=== PATIENT | female | born 1965 | race Caucasian/White ===

== ENCOUNTER 2019-02-04 17:18 | Inpatient (IN) | payer BC ==
--- NOTE | 2019-02-04 18:23 | ED ---
Psychiatric Complaint - HPI Summary HPI Summary: Patient is a 53 y/o F presenting to ED for SI. is present in the room. PMHx of major depressive disorder, PTSD, anxiety. Patient reports that she had been experiencing SI for the past six months. She went on a retreat two weeks ago and states that this exacerbated her Sx. notes that she had to go flower picker the patient "in the middle of the night". Patient states that there was a "horrible, nasty" clinician at the retreat. She claims that the clinician had attempted to prescribe her latuda, to which she notes she has a significant allergy. She states that she had experienced dress syndrome previously when she had taken latuda. She additionally states that this clinician had discontinued her diltiazem using her operations tech's name. Patient's operations tech is Dr. Berger at [place]. Patient states that she has a plan to by overdosing on her medications. She notes that she has not taken any medications today. Patient is on viibryd 40 mg, bupropion 75 mg, diltiazem 240 mg. She notes that she has two previous suicide attempts. She states that she has been hospitalized for psychiatric reasons five times, with the most recent being two years ago, in February 2017. Patient is followed by Nini Cruz, psychiatrist, in [place]. Patient additionally states that she has been experiencing left ear ache and notes that her "eye are burning". Patient took extra strength Tylenol 3.5 hours prior to arrival. - History Of Current Complaint Chief Complaint: EDSuicidal Time Seen by Provider: 02/04/19 18:05 Hx Obtained From: Patient, Family/Market Risk Specialist - Onset/Duration: Lasting Weeks - past six months, Still Present, Worse Since - going on retreat Timing: Weeks - past six months Character: Depressed Aggravating Factor(s): Recent Stress Has Suicidal: Reports: Thoughts, With A Plan, Has Prior Attempt(s) - Allergies/Home Medications Allergies/Adverse Reactions: Allergies Allergy/AdvReac Type Severity Reaction Status Date / Time lurasidone [From Latuda] Allergy See Comment Verified 02/04/19 17:34 Sulfa (Sulfonamide Allergy Hives Verified 02/04/19 17:34 Antibiotics) Home Medications: Home Medications Ascorbic Acid [Vitamin C] 1,000 mg PO DAILY 02/04/19 [History Confirmed 02/04/19 ] Cholecalciferol (Vitamin D3) [Vitamin D3] 2,000 unit PO DAILY 02/04/19 [History Confirmed 02/04/19] Docusate Sodium [Colace] 100 mg PO DAILY 02/04/19 [History Confirmed 02/04/19] Fluticasone NASAL SPRAY 50MCG* [Flonase NASAL SPRAY 50MCG*] 2 spray BOTH NARES DAILY 02/04/19 [History Confirmed 02/04/19] Lactobac 41/B.bifid,Lactis/Fos [Probiotic-10 Ultimate] 1 cap PO DAILY 02/04/19 [ History Confirmed 02/04/19] Levothyroxine Sodium [Synthroid] 50 mcg PO DAILY 02/04/19 [History Confirmed 03/18] Loratadine 10 mg PO DAILY 02/04/19 [History Confirmed 02/04/19] Multivitamin Women 50 Plus Tab 1 tab PO DAILY 02/04/19 [History Confirmed ] Vilazodone HCl [Viibryd] 1 each PO DAILY 02/04/19 [History Confirmed 02/04/19] Vit C/E/Zn/Coppr/Lutein/Zeaxan [Preservision Areds 2 Softgel] 1 each PO DAILY [History Confirmed 02/04/19] Ziprasidone HCl [Geodon] 40 mg PO DAILY 02/04/19 [History Confirmed 02/04/19] Zolpidem Tartrate [Ambien] 10 mg PO DAILY 02/04/19 [History Confirmed 02/04/19] buPROPion HCl [Zyban] 75 mg PO DAILY 02/04/19 [History Confirmed 02/04/19] clonazePAM [Clonazepam] 1 mg PO BID 02/04/19 [History Confirmed 02/04/19] dilTIAZem HCl [Diltiazem HCl ER] 240 mg PO DAILY 02/04/19 [History Confirmed 03/18] proPANTHeline TAB* [Probanthine TAB*] 15 mg PO QID 02/04/19 [History Confirmed 02/04/19] PMH/Surg Hx/FS Hx/Imm Hx Endocrine/Hematology History: Reports: Hx Thyroid Disease - hypothyroidism Psychiatric History: Reports: Hx Anxiety, Hx Depression, Hx Suicide Attempt Denies: Hx Eating Disorder Infectious Disease History: No Infectious Disease History: Denies: Traveled Outside the [place] in Last 30 Days - Family History Known Family History: Positive: Other - FMHx of suicide - Social History Alcohol Use: None Substance Use Type: Reports: None Smoking Status (MU): Never Smoked Tobacco Review of Systems ENT: Other - positive - "eyes are burning" Positive: Ear Ache - left ear Psychological: Other - positive - SI with plan All Other Systems Reviewed And Are Negative: Yes Physical Exam Triage Information Reviewed: Yes Vital Signs On Initial Exam: Initial Vitals Temp Pulse Resp BP Pulse Ox 99.3 F 111 17 131/103 95 02/04/19 17:29 02/04/19 17:29 02/04/19 17:29 02/04/19 17:29 02/04/19 17:29 Vital Signs Reviewed: Yes Appearance: Positive: Well-Appearing - but withdrawn Skin: Positive: Warm, Dry Eyes: Positive: Normal, EOMI, JARAD ENT: Positive: Normal ENT inspection, TMs normal Respiratory/Lung Sounds: Positive: Clear to Auscultation, Breath Sounds Present Cardiovascular: Positive: Normal, Pulses are Symmetrical in both Upper and Lower Extremities, Tachycardia Abdomen Description: Positive: Nontender Bowel Sounds: Positive: Present Musculoskeletal: Positive: Normal Neurological: Positive: Normal, Alert, Oriented to Person Place, Time Psychiatric: Positive: Other - Patient is withdrawn, tearful. SI w/ plan to overdose and poor judgment noted. Diagnostics - Vital Signs Vital Signs Temp Pulse Resp BP Pulse Ox 02/04/19 17:29 99.3 F 111 17 131/103 95 - Laboratory Result Diagrams: 02/04/19 18:17 02/04/19 18:17 Lab Statement: Any lab studies that have been ordered have been reviewed, and results considered in the medical decision making process. - EKG 1912 Cardiac Rate: NL - rate of 93 BPM EKG Rhythm: Sinus Rhythm Summary of EKG Findings: EKG showed NSR with rate of 93 BPM, normal axis, normal TN/QTc, no ishcemic changes. Re-Evaluation - Re-Evaluation First Eval Re-Evaluation Time: 19:00 Comment: Patient is medically cleared for MHE. Course/Dx - Course Course Of Treatment: Patient is a 53 y/o F presenting to ED with SI and plan to overdose on medications. Given her cardiac history (patient is on Ditalizem), expect tachycardia secondary to anxiety. Bloodwork and UA obtained. EKG done. EKG showed NSR with rate of 93 BPM, normal axis, normal TN/QTc, no ishcemic changes. Patient is medically cleared. She is signed out to Dr. Taylor at 1900 pending MHE. - Differential Dx/Clinical Impression Differential Diagnosis/HQI/PQRI: Positive: Anxiety, Depression Provider Diagnosis: Suicidal ideation Discharge - Sign-Out/Discharge Documenting (check all that apply): Sign-Out Patient Signing out patient TO: Henry Taylor - Discharge Plan Condition: Good Disposition: PSYCHIATRIC FACILITY[place] [place] - Billing Disposition and Condition Condition: GOOD Disposition: Psychiatric Facility [facility] [place] - Attestation Statements Document Initiated by Seanibe: Yes Documenting Scribe: TONG LEGGETT Provider For Whom Devorah is Documenting (Include Credential): ROBERT FIELD MD Scribe Attestation: TONG Loving, scribed for ROBERT FIELD MD on 02/05/19 at 1047. Scribe Documentation Reviewed: Yes Provider Attestation: The documentation as recorded by the scribeTONG accurately reflects the service I personally performed and the decisions made by me, ROBERT FIELD MD Status of Scribe Document: Viewed
[2019-02-04 18:24] LABS: ABS Basophils 0.1 10^3/ul (0-0.2); ABS Eosinophils 0.1 10^3/ul (0-0.6); ABS Monocytes 0.8 10^3/ul (0-0.8); ABS Neutrophils 6.3 10^3/ul (1.5-7.7); Eosinophil % 1.1 %; Hematocrit 40 % (35-47); Hemoglobin 13.8 g/dL (12.0-16.0); Lymphocyte % 21.9 %; Mean Corpuscular HGB Conc 35 g/dL (31-36); Mean Corpuscular Hemoglobin 30 pg (27-31); Mean Corpuscular Volume 86 fL (80-97); Mean Platelet Volume 7.2 fL (7.4-10.4); Platelet Count 310 10^3/uL (150-450); Red Blood Count 4.65 10^6 /uL (3.70-4.87); Red Cell Distribution Width 13 % (10-15); White Blood Count 9.3 10^3/uL (3.5-10.8)
[2019-02-04 18:31] LABS: Urine Appearance Cloudy; Urine Bacteria 1+ (Absent); Urine Bilirubin Negative (Negative); Urine Blood Negative (Negative); Urine Color Yellow; Urine Glucose Negative (Negative); Urine Ketones Negative (Negative); Urine Nitrite Negative (Negative); Urine Protein Negative (Negative); Urine Red Blood Cell 1+(3-5/hpf) (Absent); Urine Specific Gravity 1.011 (1.010-1.030); Urine Urobilinogen Negative (Negative); Urine White Blood Cell 2+(11-20/hpf) (Absent)
[2019-02-04 18:40] LABS: ALT 40 U/L (7-52); AST 24 U/L (13-39); Albumin 4.5 g/dL (3.2-5.2); Albumin/Globulin Ratio 1.7 (1-3); Alkaline Phosphatase 115 U/L (34-104); Anion Gap 8 mmol/L (2-11); BUN/Creatinine Ratio 15.7 (8-20); Blood Urea Nitrogen 14 mg/dL (6-24); CO2 Carbon Dioxide 26 mmol/L (22-32); Calcium 10.1 mg/dL (8.6-10.3); Chloride 104 mmol/L (101-111); EGFR African American 80.6 (>60); EGFR Non-African American 66.6 (>60); Globulin 2.7 g/dL (2-4); Glucose 100 mg/dL (70-100); Potassium 4.1 mmol/L (3.5-5.0); Sodium 138 mmol/L (135-145); Total Protein 7.2 g/dL (6.4-8.9)
[2019-02-04 18:45] LABS: Urine Benzodiazepine Screen None Detected (None Detect); Urine Opiates Screen None Detected (None Detect)
[2019-02-04 18:46] LABS: HCG Pregnancy 3.27 mIU/mL
[2019-02-04 19:02] LABS: Acetaminophen < 15 mcg/mL; Alcohol < 10 mg/dL (<10); Salicylate < 2.50 mg/dL (<30)
[2019-02-04 19:16] LABS: TSH (Thyroid Stimulating Horm) 4.28 mcIU/mL (0.34-5.60)
--- NOTE | 2019-02-04 20:06 | ED ---
Progress - Progress Note Progress Note: Pt is a sign out from Dr. Lee to Dr. Taylor at shift change 1900 02/04/19 pending a MHU Eval for the pt. Re-Evaluation - Re-Evaluation First Eval Re-Evaluation Time: 19:00 Comment: Patient is medically cleared for MHE. Course/Dx - Course Course Of Treatment: The pt is a sing out from dr. Lee to Dr. Taylor at 1900 02/04/19 pending MHE. Discharge - Sign-Out/Discharge Documenting (check all that apply): Receiving Sign-Out Receiving patient FROM: Anette Lee Patient Received Moderate/Deep Sedation with Procedure: No - Discharge Plan Referrals: Kane WOLFE,Cassia Stiles [Medical Doctor] - - Attestation Statements Document Initiated by Scribe: Yes Documenting Scribe: Scott Colunga Provider For Whom Scribe is Documenting (Include Credential): Henry Taylor MD Scribe Attestation: IScott, scribed for Henry Taylor MD on 02/04/19 at 2006.
[2019-02-05] MEDS ORDERED: Acetaminophen TAB* 325 MG PO PRN (00:16)
[2019-02-05] MEDS ORDERED: Al Hydrox/Mg Hydrox/Simet LIQ* 30 ML UDC PO PRN (00:16)
[2019-02-05] MEDS: Diltiazem CD CAP* 240 MG PO SCH ×2 (01:43→23:11)
[2019-02-05] MEDS: [UNRECOGNIZED DRUG - OTHER] PO SCH ×5 (01:43→23:13)
[2019-02-05] MEDS: Zolpidem TAB* 10 MG PO SCH ×2 (01:44→23:11)
[2019-02-05] MEDS: clonazePAM TAB(*) 1 MG PO SCH ×3 (01:44→23:11)
[2019-02-05] MEDS: Levothyroxine TAB* 50 MCG TAB PO SCH (06:08)
[2019-02-05] MEDS: Vitamin THERAPEUTIC TAB PO SCH (08:44)
[2019-02-05] MEDS: Ascorbic Acid TAB* 500 MG PO SCH (08:46)
[2019-02-05] MEDS: Ziprasidone * 20 MG CAP (generic Geodon) PO SCH (08:47)
[2019-02-05] MEDS: Cholecalciferol TAB* 1000 UNITS PO SCH (08:48)
[2019-02-05] MEDS: buPROPion TAB* 75 MG PO SCH (08:48)
[2019-02-05] MEDS: AREDS2 PO SCH (08:50)
[2019-02-05] MEDS: VILAZODONE 40 MG PO SCH (08:50)
[2019-02-05] MEDS: Fluticasone NASAL SPRAY 50MCG* 16 gm SPRAY BTL BOTH NARES SCH (08:52)
[2019-02-05] MEDS ORDERED: Docusate CAP* 100 MG PO SCH (09:00)
[2019-02-05] MEDS ORDERED: Cetirizine* 10 MG TAB PO SCH (09:00)
[2019-02-05] MEDS ORDERED: [UNRECOGNIZED DRUG - OTHER] PO SCH (09:00)
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
[2019-02-05] MEDS: Docusate CAP* 100 MG PO SCH (23:11)
[2019-02-05] MEDS: LORATADINE 10 MG PO SCH (23:12)
[2019-02-05] MEDS: [UNRECOGNIZED DRUG - OTHER] PO SCH (23:13)
[2019-02-06] MEDS: Levothyroxine TAB* 50 MCG TAB PO SCH (04:57)
[2019-02-06] MEDS: Fluticasone NASAL SPRAY 50MCG* 16 gm SPRAY BTL BOTH NARES SCH (09:10)
[2019-02-06] MEDS: [UNRECOGNIZED DRUG - OTHER] PO SCH ×4 (09:10→21:50)
[2019-02-06] MEDS: VILAZODONE 40 MG PO SCH (09:12)
[2019-02-06] MEDS: AREDS2 PO SCH (09:13)
[2019-02-06] MEDS: Ascorbic Acid TAB* 500 MG PO SCH (09:15)
[2019-02-06] MEDS: Ziprasidone * 20 MG CAP (generic Geodon) PO SCH (09:16)
[2019-02-06] MEDS: Vitamin THERAPEUTIC TAB PO SCH (09:16)
[2019-02-06] MEDS: buPROPion TAB* 75 MG PO SCH (09:19)
[2019-02-06] MEDS: clonazePAM TAB(*) 1 MG PO SCH ×2 (09:19→21:45)
[2019-02-06] MEDS: Docusate CAP* 100 MG PO SCH ×2 (09:20→21:46)
[2019-02-06] MEDS: Cholecalciferol TAB* 1000 UNITS PO SCH (09:20)
--- NOTE | 2019-02-06 16:14 | PN ---
Subjective - Subjective Date of Service: 02/06/19 Service Type: 72413 Hosp care 25 min moderate complexity Subjective: Patient reports poor sleep and is eager to return home either tomorrow or Monday. She states she is "not suicidal" and has a "game plan" for returning home. Patient endorses mild improvement in appetite. From there, conversation centered around conflict with her step-daughter. Patient encouraged to focus on her own thoughts/feelings/behaviors and relinquish expectations for child's behaviors. Patient receptive to therapeutic suggestions, including DBT options with outpatient providers. Objective - General Observations Appearance: Neat Stature: Overweight Posture: WNL Eye Contact: Average Behavior/Activity: WNL - Interaction Observations Attitude Towards Examiner: Cooperative, Anxious Stated Mood: Euthymic Affect: Full Speech Pattern/Tone: Clear, Appropriate, Normal Volume Thought Process: Coherent, Goal Directed Perception: WNL Thought Content: Preoccupation/Ruminations Hallucination Type: Denies Delusion Type: Denies - Cognitive Function Orientation: A&O x 4 Level of Consciousness: Alert Cognition: WNL Estimated Intelligence: Normal Insight: Mostly Blames Others for Problems Judgment Within Normal Limits: Yes - Medication Compliance Cooperative with Inpatient Medication Regimen: Yes - Group Participation Participates in Group Activities: Yes Assessment - Assessment Merits Inpatient Hospitalization: For Immediate Safety, For Stabilization Inpatient DSM-V Dx: F43.12 Clinical Impression: Patient is a 53-year-old white female, domiciled, , disabled, who has been hospitalized 4 times in the past since 2011. She reports attending a treatment facility last month in the hopes of treating posttraumatic stress disorder and depression. While there, she identified that it was primarily a substance use treatment facility and did not feel well cared for. She reports worsening depressed mood and suicidal ideation upon arrival. The patient has been on multiple medication trials with either untoward effects, drug rash with eosinophilia and systemic symptoms syndrome, or ineffectiveness. Patient merits hospitalization for immediate safety and stabilization. Plan - Plan Treatment Plan: Name: CINTHIA CHAVEZ Birthdate: 1965 [id number] continue acute intensive psychiatric treatment. may decrease to q30min and allow staff pass. change ziprasidone to bedtime dosing, add ibuprofen prn pain. tentative discharge 02/07/19. Continued Medication Management: Continue Outpt Medication Medications: Current Medications Acetaminophen (Tylenol Tab*) 650 mg PO Q4H PRN PRN Reason: PAIN or TEMP > 101 F Last Admin: 02/06/19 04:55 Dose: 650 mg Al Hydrox/Mg Hydrox/Simethicone (Maalox Plus*) 30 ml PO Q4H PRN PRN Reason: INDIGESTION Last Admin: 02/05/19 18:05 Dose: 30 ml Ascorbic Acid (Vitamin C Tab*) 1,000 mg PO DAILY [facility] Last Admin: 02/06/19 09:15 Dose: Not Given Bupropion HCl (Wellbutrin Tab*) 75 mg PO DAILY [facility] Last Admin: 02/06/19 09:19 Dose: 75 mg Cholecalciferol (Vitamin D Tab*) 2,000 units PO DAILY [facility] Last Admin: 02/06/19 09:20 Dose: 2,000 units Clonazepam (Klonopin Tab(*)) 1 mg PO BID [facility] Last Admin: 02/06/19 09:19 Dose: 1 mg Diltiazem HCl (Cardizem Cd Cap*) 240 mg PO 2100 [facility] Last Admin: 02/05/19 23:11 Dose: 240 mg Docusate Sodium (Colace Cap*) 200 mg PO BID [facility] Last Admin: 02/06/19 09:20 Dose: 200 mg Fluticasone Propionate (Flonase Nasal [place] 50mcg*) 2 spray BOTH NARES DAILY [facility] Last Admin: 02/06/19 09:10 Dose: 2 spray Ibuprofen (Motrin Tab*) 600 mg PO Q6H PRN PRN Reason: PAIN Levothyroxine Sodium (Synthroid Tab*) 50 mcg PO 0600 [facility] Last Admin: 02/06/19 04:57 Dose: 50 mcg Loratadine (Claritin Tab(Nf)) 10 mg PO BEDTIME [facility] Last Admin: 02/05/19 23:12 Dose: 10 mg Multivitamins (Theragran Tab*) 1 tab PO DAILY [facility] Last Admin: 02/06/19 09:16 Dose: Not Given Multivitamins/Minerals (Preservision Areds 2) 1 cap PO DAILY [facility] Last Admin: 02/06/19 09:13 Dose: 1 cap Pto: Vilazodone 40 (Mg Tablets) 1 dose PO 0800 [facility] Last Admin: 02/06/19 09:12 Dose: 1 dose Pto: Ultimate Dahlia (Probiotic Supplement) 1 dose PO BEDTIME [facility] Last Admin: 02/05/19 23:13 Dose: 1 dose Propantheline [place] (Probanthine Tab*) 15 mg PO QID [facility] Last Admin: 02/06/19 12:37 Dose: Not Given Ziprasidone (Geodon (Generic) *) 40 mg PO BEDTIME [facility] Zolpidem Tartrate (Ambien Tab*) 10 mg PO BEDTIME [facility] Last Admin: 02/05/19 23:11 Dose: 10 mg - Discharge Plan Discharge Plan: Inpatient Hospitalization
[2019-02-06] MEDS: Ibuprofen TAB* 600 MG PO PRN (16:51)
[2019-02-06] MEDS ORDERED: Ziprasidone * 20 MG CAP (generic Geodon) PO SCH (21:00)
[2019-02-06] MEDS: Diltiazem CD CAP* 240 MG PO SCH (21:46)
[2019-02-06] MEDS: Zolpidem TAB* 10 MG PO SCH (21:47)
[2019-02-06] MEDS: LORATADINE 10 MG PO SCH (21:48)
[2019-02-06] MEDS: [UNRECOGNIZED DRUG - OTHER] PO SCH (21:50)
[2019-02-07] MEDS: Ibuprofen TAB* 600 MG PO PRN ×2 (03:36→16:36)
[2019-02-07] MEDS: Levothyroxine TAB* 50 MCG TAB PO SCH (06:34)
[2019-02-07] MEDS: [UNRECOGNIZED DRUG - OTHER] PO SCH ×3 (07:53→16:36)
[2019-02-07 08:28] VITALS: BP 115/73
[2019-02-07 08:45] LABS: HDL Cholesterol 57.3 mg/dL
[2019-02-07] MEDS: Docusate CAP* 100 MG PO SCH (08:57)
[2019-02-07] MEDS: Ascorbic Acid TAB* 500 MG PO SCH (08:57)
[2019-02-07] MEDS: buPROPion TAB* 75 MG PO SCH (08:57)
[2019-02-07] MEDS: Vitamin THERAPEUTIC TAB PO SCH (08:58)
[2019-02-07] MEDS: VILAZODONE 40 MG PO SCH (08:59)
[2019-02-07] MEDS: Cholecalciferol TAB* 1000 UNITS PO SCH (09:00)
[2019-02-07] MEDS: AREDS2 PO SCH (09:04)
[2019-02-07] MEDS: Fluticasone NASAL SPRAY 50MCG* 16 gm SPRAY BTL BOTH NARES SCH (09:04)
--- NOTE | 2019-02-07 11:54 | DCNOTE ---
Subjective - Subjective Service Types: 17180 [facility] [place] [facility] simple under 30 min Discharge Date: 02/07/19 Subjective: Patient reports she slept "great" and feels rested for the first time in over a month. She reports she has discussed counseling with her and he agrees to engage, specifically to target improved parenting of their teenage daughter. She reports "seeing light" in regards to hopefulness and that this is a new experience for her. She expresses appreciation for services received and motivation to continue recovery efforts in outpatient setting. Objective - General Observations Appearance: Neat Stature: WNL, Overweight Posture: WNL Eye Contact: Average Behavior/Activity: WNL - Interaction Observations Attitude Towards Examiner: Cooperative Stated Mood: Euthymic Affect: Bright Speech Pattern/Tone: Clear, Appropriate, Normal Volume Thought Process: Coherent, Goal Directed Perception: WNL Thought Content: WNL Hallucination Type: None Delusion Type: None - Cognitive Function Orientation: A&O x 4 Level of Consciousness: Alert Cognition: WNL Estimated Intelligence: Normal Insight: WNL Judgment Within Normal Limits: Yes - Medication Compliance Cooperative with Inpatient Medication Regimen: Yes - Group Participation Participates in Group Activities: Yes DC Assessment - Assessment Clinical Impression: Patient is a 53-year-old white female, domiciled, , disabled, who has been hospitalized 4 times in the past since 2011. She reports attending a treatment facility last month in the hopes of treating posttraumatic stress disorder and depression. While there, she identified that it was primarily a substance use treatment facility and did not feel well cared for. She reports worsening depressed mood and suicidal ideation upon arrival. The patient has been on multiple medication trials with either untoward effects, drug rash with eosinophilia and systemic symptoms syndrome, or ineffectiveness. She reports much improvement in mood and sleep since admission. She denies SI or passive wish and is eager to be discharged to return home to her family. Merits Inpatient Hospitalization: No Clear for Discharge: Adequate Clinical Respons, Acceptable Safety Profile Inpatient DSM-V Dx: F43.12 Discharge Planning - Discharge Planning Discharge Plan: Outpatient Follow Up Outpatient Program: [facility] Recommendations for Continuing Care: Medication Management, Psychotherapy, Routine Metabolic Monitoring, Primary Care Followup Medications: Current Medications Acetaminophen (Tylenol Tab*) 650 mg PO Q4H PRN PRN Reason: PAIN or TEMP > 101 F Last Admin: 02/06/19 04:55 Dose: 650 mg Al Hydrox/Mg Hydrox/Simethicone (Maalox Plus*) 30 ml PO Q4H PRN PRN Reason: INDIGESTION Last Admin: 02/05/19 18:05 Dose: 30 ml Ascorbic Acid (Vitamin C Tab*) 1,000 mg PO DAILY [facility] Last Admin: 02/07/19 08:57 Dose: 1,000 mg Bupropion HCl (Wellbutrin Tab*) 75 mg PO DAILY [facility] Last Admin: 02/07/19 08:57 Dose: 75 mg Cholecalciferol (Vitamin D Tab*) 2,000 units PO DAILY [facility] Last Admin: 02/07/19 09:00 Dose: 2,000 units Clonazepam (Klonopin Tab(*)) 1 mg PO BID [facility] Last Admin: 02/06/19 21:45 Dose: 1 mg Diltiazem HCl (Cardizem Cd Cap*) 240 mg PO 2100 [facility] Last Admin: 02/06/19 21:46 Dose: 240 mg Docusate Sodium (Colace Cap*) 200 mg PO BID [facility] Last Admin: 02/07/19 08:57 Dose: 200 mg Fluticasone Propionate (Flonase Nasal [place] 50mcg*) 2 spray BOTH NARES DAILY [facility] Last Admin: 02/07/19 09:04 Dose: 2 spray Ibuprofen (Motrin Tab*) 600 mg PO Q6H PRN PRN Reason: PAIN Last Admin: 02/07/19 03:36 Dose: 600 mg Levothyroxine Sodium (Synthroid Tab*) 50 mcg PO 0600 [facility] Last Admin: 02/07/19 06:34 Dose: 50 mcg Loratadine (Claritin Tab(Nf)) 10 mg PO BEDTIME [facility] Last Admin: 02/06/19 21:48 Dose: 10 mg Multivitamins (Theragran Tab*) 1 tab PO DAILY [facility] Last Admin: 02/07/19 08:58 Dose: 1 tab Multivitamins/Minerals (Preservision Areds 2) 1 cap PO DAILY [facility] Last Admin: 02/07/19 09:04 Dose: 1 cap Pto: Vilazodone 40 (Mg Tablets) 1 dose PO 0800 [facility] Last Admin: 02/07/19 08:59 Dose: 1 dose Pto: Ultimate Dahlia (Probiotic Supplement) 1 dose PO BEDTIME [facility] Last Admin: 02/06/19 21:50 Dose: 1 dose Propantheline [place] (Probanthine Tab*) 15 mg PO QID [facility] Last Admin: 02/07/19 07:53 Dose: 15 mg Ziprasidone (Geodon (Generic) *) 40 mg PO BEDTIME with >300 juliane [facility] Last Admin: 02/06/19 21:47 Dose: 40 mg Zolpidem Tartrate (Ambien Tab*) 10 mg PO BEDTIME [facility] Last Admin: 02/06/19 21:47 Dose: 10 mg Discharge Planning: Prescriptions provided for discharge [] Yes [x] No Follow up care details as per social work arrangements: [facility]- Dr Cassia Middleton Patient response to discharge plan: [x] eager for discharge [x] agreeable with discharge plan [] ambivalent about discharge [] disagrees with discharge today
[2019-02-07] MEDS: clonazePAM TAB(*) 1 MG PO SCH ×2 (12:20→12:54)
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
--- NOTE | 2019-02-07 16:11 | PN ---
BSU: Group Therapy Note - Service Type Service Type: [id number] Group Psychotherapy - Group Participation Patient Participating in Group: Yes Level of Group Participation: Attentive, Spontaneously Participate Relatedness to Group: Well Related - Akiko was quiet during group for the most part, but participated actively in discussion following the group's dismissal. She discussed her DRESS syndrome and her assertion that she will be her own advocate.
== END 2019-02-07 17:30 | disposition home or self-care (01) | DRG 751 ==
LOC: ED 17:18 → BSU 23:56
PROVIDERS: ADMIT Psychiatry & Neurology Psychiatry; ATTEND Psychiatry & Neurology Psychiatry
PROC: GZHZZZZ Group Psychotherapy (ICD-10-PCS; principal; 2019-02-07)
DX: F33.1 Major depressive disorder, recurrent, moderate (principal); R45.851 Suicidal ideations; F43.12 Post-traumatic stress disorder, chronic; E03.9 Hypothyroidism, unspecified; Z62.810 Personal history of physical and sexual abuse in childhood; E07.9 Disorder of thyroid, unspecified; J30.2 Other seasonal allergic rhinitis; F41.9 Anxiety disorder, unspecified; Z91.5 Personal history of self-harm; Z88.8 Allergy status to other drugs, medicaments and biological substances; Z88.2 Allergy status to sulfonamides; Z81.8 Family history of other mental and behavioral disorders; Z80.3 Family history of malignant neoplasm of breast; Z81.1 Family history of alcohol abuse and dependence
CPT/HCPCS: 36415; 80053; 80061; 80307; 80320; 80329; 81003; 81015; 83036; 84443; 84702; 85025; 87086; 90853; 93005; 99222; 99232; 99238; 99284; A9270-GY; G0480

== ENCOUNTER 2019-02-13 11:49 | Inpatient (IN) | payer BC, OTHER ==
--- NOTE | 2019-02-13 12:31 | ED ---
Psychiatric Complaint - HPI Summary HPI Summary: A 53 y/o female presents to [facility] with a chief complaint of being suicidal. She says that she was just discharged 02/07/19. She says that she wants to kill herself, has only been able to sleep 2-3 hours each night and is angry. She denies any yuliana. She says that she has never been angry like this before. She said that she tried to commit suicide twice, once by overdosing on Benadryl and wine, and the second time she overdosed she was put on a ventilator in the ICU for one day. The attempts were 14 years ago and 7 years ago. She has no plans at the moment, but does not want to kill herself. She says that she is taking her medications as prescribed but has not been able to sleep well for 7 weeks. She uses medical marijuana twice a week but denies other drug or alcohol use. She says that she is allergic to Sulfa and Latuda. Pt denies any fever, chills , erythema of eyes, sore throat, CP, SOB, cough, abdominal pain, N/V, dysuria, hematuria, myalgia, edema, rash, or dizziness. - History Of Current Complaint Chief Complaint: EDSuicidal Time Seen by Provider: 02/13/19 12:11 Hx Obtained From: Patient Onset/Duration: Gradual Onset, Lasting Days, Still Present Timing: Days Severity Initially: Mild Severity Currently: Mild Character: Depressed Aggravating Factor(s): Nothing Alleviating Factor(s): Nothing Associated Signs And Symptoms: Positive: Sleep Disturbance Related History: Positive For: Prior Psychiatric Issues Has Suicidal: Reports: Thoughts. Denies: With A Plan Has Homicidal: Denies: Thoughts - Allergies/Home Medications Allergies/Adverse Reactions: Allergies Allergy/AdvReac Type Severity Reaction Status Date / Time lurasidone [From Latuda] Allergy See Comment Verified 02/13/19 13:04 Sulfa (Sulfonamide Allergy Hives Verified 02/13/19 13:04 Antibiotics) Home Medications: Home Medications Diltiazem CD CAP* [Cardizem CD CAP*] 240 mg PO QPM 02/13/19 [History Confirmed 02/13/19] Levothyroxine TAB* [Synthroid TAB*] 50 mcg PO QAM 02/13/19 [History Confirmed ] Multivit-Min/Iron/Folic/Lutein [Multivitamin Women 50 Plus Tab] 1 tab PO DAILY 02/13/19 [History Confirmed 02/13/19] Vilazodone (NF) [Viibryd (NF)] 40 mg PO DAILY 02/13/19 [History Confirmed ] PMH/Surg Hx/FS Hx/Imm Hx Endocrine/Hematology History: Reports: Hx Thyroid Disease - hypothyroidism Sensory History: Reports: Hx Contacts or Glasses Denies: Hx Hearing Aid Opthamlomology History: Reports: Hx Contacts or Glasses Psychiatric History: Reports: Hx Anxiety, Hx Depression, Hx Post Traumatic Stress Disorder, Hx Suicide Attempt Denies: Hx Eating Disorder, Hx of Violent Episodes Against Others Infectious Disease History: No Infectious Disease History: Denies: Traveled Outside the [place] in Last 30 Days - Family History Known Family History: Positive: Other - FMHx of suicide - Social History Alcohol Use: None Substance Use Type: Reports: Marijuana - medical Substance Use Comment - Amount & Last Used: twice per week Smoking Status (MU): Never Smoked Tobacco Review of Systems Negative: Fever, Chills Negative: Erythema Negative: Sore Throat Negative: Chest Pain Negative: Shortness Of Breath, Cough Negative: Abdominal Pain, Vomiting, Nausea Negative: dysuria, hematuria Negative: Myalgia, Edema Negative: Rash Neurological: Negative - dizziness Positive: Other - positive: suicidal without a plan All Other Systems Reviewed And Are Negative: Yes Physical Exam - Summary Physical Exam Summary: Constitutional: Well-developed, Well-nourished, Alert. (-) Distressed Skin: Warm, Dry HENT: Normocephalic; Atraumatic Eyes: Conjunctiva normal Neck: Musculoskeletal ROM normal neck. (-) JVD, (-) Stridor, (-) Tracheal deviation Cardio: Rhythm regular, rate normal, Heart sounds normal; Intact distal pulses; The pedal pulses are 2+ and symmetric. Radial pulses are 2+ and symmetric. (-) Murmur Pulmonary/Chest wall: Effort normal. (-) Respiratory distress, (-) Wheezes, (-) Rales Abd: Soft, (-) tenderness, (-) Distension, (-) Guarding, (-) Rebound Musculoskeletal: (-) Edema Lymph: (-) Cervical adenopathy Neuro: Alert, Oriented x3 Psych: Mood and affect Normal Triage Information Reviewed: Yes Vital Signs On Initial Exam: Initial Vitals Temp Pulse Resp BP Pulse Ox 98.7 F 92 14 144/90 96 02/13/19 11:50 02/13/19 11:50 02/13/19 11:50 02/13/19 11:50 02/13/19 11:50 Vital Signs Reviewed: Yes Diagnostics - Vital Signs Vital Signs Temp Pulse Resp BP Pulse Ox 02/13/19 11:50 98.7 F 92 14 144/90 96 - Laboratory Result Diagrams: 02/13/19 12:28 02/13/19 12:28 Lab Statement: Any lab studies that have been ordered have been reviewed, and results considered in the medical decision making process. Re-Evaluation - Re-Evaluation First Eval Re-Evaluation Time: 13:13 Change: Unchanged Comment: Pt medically cleared for MHE. Course/Dx - Course Course Of Treatment: A 53 y/o female presents to [facility] with a chief complaint of being suicidal. She says that she was just discharged 02/07/19. She says that she wants to kill herself, has only been able to sleep 2-3 hours each night and is angry. She denies any yuliana. She says that she has never been angry like this before. She said that she tried to commit suicide twice, once by overdosing on Benadryl and wine, and the second time she overdosed she was put on a ventilator in the ICU for one day. The attempts were 14 years ago and 7 years ago. She has no plans at the moment, but does not want to kill herself. She says that she is taking her medications as prescribed but has not been able to sleep well for 7 weeks. She uses medical marijuana twice a week but denies other drug or alcohol use. She says that she is allergic to Sulfa and Latuda. Pt denies any fever, chills, erythema of eyes, sore throat, CP, SOB, cough, abdominal pain, N/V, dysuria, hematuria, myalgia, edema, rash, or dizziness.The physical exam was unremarkable. Blood work, chemistries, urines and toxicology obtained and the patient has been cleared for MHE. In the ED course the patient was given Tylenol PO, Atarax PO and Ativan PO. Per mental health escrow assistant, Dr. Harry has decided that the patient will be admitted. Dx: severe major depressive disorder. - Differential Dx/Clinical Impression Provider Diagnosis: Severe major depressive disorder - Physician Notifications Discussed Care Of Patient With: Ricki Harry Time Discussed With Above Provider: 14:44 Instructed by Provider To: Other - Per mental health escrow assistant, Dr. Harry has decided that the patient will be admitted. Dx: severe major depressive disorder Discharge - Sign-Out/Discharge Documenting (check all that apply): Patient Departure - admit Patient Received Moderate/Deep Sedation with Procedure: No - Discharge Plan Condition: Improved Disposition: PSYCHIATRIC FACILITY-[facility] [place] - Billing Disposition and Condition Condition: IMPROVED Disposition: Psychiatric Facility [facility] [place] - Attestation Statements Document Initiated by Scribe: Yes Documenting Scribe: Tono Martinez Provider For Whom Devorah is Documenting (Include Credential): Jonel Aguilera MD Scribe Attestation: Tono Loving, scribed for Jonel Aguilera MD on 02/21/19 at 1131. Scribe Documentation Reviewed: Yes Provider Attestation: The documentation as recorded by the Tono muñoz accurately reflects the service I personally performed and the decisions made by Jonel powers MD Status of Scribe Document: Viewed
[2019-02-13 12:48] LABS: ABS Eosinophils 0.1 10^3/ul (0-0.6); ABS Lymphocytes 2.1 10^3/ul (1.0-4.8); ABS Monocytes 0.7 10^3/ul (0-0.8); ABS Neutrophils 3.6 10^3/ul (1.5-7.7); Eosinophil % 1.3 %; Hematocrit 39 % (35-47); Hemoglobin 13.2 g/dL (12.0-16.0); Lymphocyte % 31.9 %; Mean Corpuscular HGB Conc 34 g/dL (31-36); Mean Corpuscular Hemoglobin 29 pg (27-31); Mean Corpuscular Volume 87 fL (80-97); Mean Platelet Volume 7.5 fL (7.4-10.4); Nucleated Red Blood Cells % 0.2; Platelet Count 289 10^3/uL (150-450); Red Cell Distribution Width 13 % (10-15); White Blood Count 6.5 10^3/uL (3.5-10.8)
[2019-02-13 12:55] LABS: ALT 34 U/L (7-52); AST 23 U/L (13-39); Albumin 4.4 g/dL (3.2-5.2); Albumin/Globulin Ratio 1.8 (1-3); Alkaline Phosphatase 120 U/L (34-104); Anion Gap 8 mmol/L (2-11); BUN/Creatinine Ratio 16.1 (8-20); Blood Urea Nitrogen 14 mg/dL (6-24); CO2 Carbon Dioxide 27 mmol/L (22-32); Calcium 9.6 mg/dL (8.6-10.3); Chloride 103 mmol/L (101-111); EGFR African American 82.7 (>60); EGFR Non-African American 68.4 (>60); Globulin 2.4 g/dL (2-4); Glucose 91 mg/dL (70-100); Potassium 3.7 mmol/L (3.5-5.0); Sodium 138 mmol/L (135-145); Total Protein 6.8 g/dL (6.4-8.9)
[2019-02-13 13:04] LABS: Urine Benzodiazepine Screen None Detected (None Detect); Urine Opiates Screen None Detected (None Detect)
[2019-02-13 13:14] LABS: Urine Appearance Clear; Urine Bilirubin Negative (Negative); Urine Blood Negative (Negative); Urine Color Straw; Urine Glucose Negative (Negative); Urine Ketones Negative (Negative); Urine Nitrite Negative (Negative); Urine Protein Negative (Negative); Urine Specific Gravity 1.008 (1.010-1.030); Urine Urobilinogen Negative (Negative)
[2019-02-13 13:38] LABS: Acetaminophen < 15 mcg/mL; Alcohol < 10 mg/dL (<10); Salicylate < 2.50 mg/dL (<30)
[2019-02-13] MEDS ORDERED: Acetaminophen TAB* 325 MG PO ONE (13:41)
[2019-02-13 13:46] LABS: TSH (Thyroid Stimulating Horm) 2.33 mcIU/mL (0.34-5.60)
[2019-02-13] MEDS ORDERED: LORazepam TAB(*) 1 MG PO ONE (14:19)
[2019-02-13] MEDS ORDERED: hydrOXYzine HCL TAB* 50 MG PO ONE (14:19)
[2019-02-13] MEDS ORDERED: Acetaminophen TAB* 325 MG ONE (14:56)
[2019-02-13] MEDS ORDERED: [UNRECOGNIZED DRUG - OTHER] PO SCH (17:00)
[2019-02-13] MEDS: DILTIAZEM CD 240 MG PO SCH (18:28)
[2019-02-13] MEDS ORDERED: Al Hydrox/Mg Hydrox/Simet LIQ* 30 ML UDC PO PRN (18:43)
[2019-02-13] MEDS: [UNRECOGNIZED DRUG - OTHER] PO SCH (21:39)
[2019-02-13] MEDS: clonazePAM TAB(*) 1 MG PO SCH (22:18)
[2019-02-13] MEDS: Ziprasidone * 20 MG CAP (generic Geodon) PO SCH (22:18)
[2019-02-13] MEDS: Docusate CAP* 100 MG PO SCH (22:18)
[2019-02-13] MEDS: hydrOXYzine HCL TAB* 50 MG PO PRN (22:19)
[2019-02-14] MEDS: Levothyroxine TAB* 50 MCG TAB PO SCH (06:00)
[2019-02-14] MEDS: [UNRECOGNIZED DRUG - OTHER] PO SCH ×2 (07:43→14:13)
[2019-02-14 08:36] LABS: HDL Cholesterol 64.1 mg/dL
[2019-02-14] MEDS ORDERED: Fluticasone NASAL SPRAY 50MCG* 16 gm SPRAY BTL BOTH NARES SCH (09:00)
[2019-02-14] MEDS: Docusate CAP* 100 MG PO SCH ×2 (09:05→21:29)
[2019-02-14] MEDS: Cholecalciferol TAB* 1000 UNITS PO SCH (09:05)
[2019-02-14] MEDS: Ascorbic Acid TAB* 500 MG PO SCH (09:05)
[2019-02-14] MEDS: clonazePAM TAB(*) 1 MG PO SCH (09:06)
[2019-02-14] MEDS: buPROPion TAB* 75 MG PO SCH (09:07)
[2019-02-14] MEDS: Multivitamins/Minerals TAB PO SCH (09:07)
[2019-02-14] MEDS ORDERED: Ibuprofen TAB* 600 MG PO PRN (14:44)
[2019-02-14] MEDS ORDERED: clonazePAM TAB(*) 1 MG PO PRN (14:46)
[2019-02-14] MEDS: LORazepam TAB(*) 1 MG PO PRN (17:15)
[2019-02-14] MEDS: [UNRECOGNIZED DRUG - OTHER] PO PRN ×2 (17:19→21:55)
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
[2019-02-14] MEDS ORDERED: Cetirizine* 10 MG TAB PO SCH (21:00)
[2019-02-14] MEDS: Zolpidem TAB* 10 MG PO SCH (21:29)
[2019-02-14] MEDS: DILTIAZEM CD 240 MG PO SCH (21:31)
[2019-02-14] MEDS: LORATADINE 10 MG PO SCH (21:32)
[2019-02-14] MEDS: Ziprasidone * 20 MG CAP (generic Geodon) PO SCH (21:34)
[2019-02-15] MEDS: LORazepam TAB(*) 1 MG PO PRN ×3 (00:11→21:38)
[2019-02-15] MEDS: Levothyroxine TAB* 50 MCG TAB PO SCH (06:11)
[2019-02-15] MEDS: CMCS:Vilazodone (NF) 40 MG TAB PO SCH ×2 (07:48→09:25)
[2019-02-15] MEDS: [UNRECOGNIZED DRUG - OTHER] PO SCH ×2 (08:43→09:27)
[2019-02-15] MEDS: Fluticasone NASAL SPRAY 50MCG* 16 gm SPRAY BTL BOTH NARES SCH (09:26)
[2019-02-15] MEDS: [UNRECOGNIZED DRUG - OTHER] PO PRN ×2 (09:27→18:08)
[2019-02-15] MEDS: PTO:Multivitamins/Mins (NF) AREDS2 1 CAP CAP PO SCH (09:27)
[2019-02-15] MEDS: LACTOBAC PO SCH (09:28)
[2019-02-15] MEDS: [UNRECOGNIZED DRUG - OTHER] PO SCH (09:28)
[2019-02-15] MEDS: Docusate CAP* 100 MG PO SCH ×2 (09:29→21:34)
[2019-02-15] MEDS: buPROPion TAB* 75 MG PO SCH (09:29)
[2019-02-15] MEDS: Multivitamins/Minerals TAB PO SCH (09:30)
[2019-02-15] MEDS: Cholecalciferol TAB* 1000 UNITS PO SCH (09:30)
[2019-02-15] MEDS: Ascorbic Acid TAB* 500 MG PO SCH (09:30)
--- NOTE | 2019-02-15 12:14 | PN ---
Subjective - Subjective Date of Service: 02/15/19 Service Type: 20001 Hosp care 25 min moderate complexity Subjective: Patient reports being in the midst of a panic attack and had taken lorazepam directly before conversation. She is receptive to grounding and breathing techniques. We discuss conversations she has had with her and daughters. Patient is prompted to identify emotions related to above. She reports feeling well supported by her and his parents. She states concern about geodon and hx of tachycardia. She agrees to obtain EKG. Patient reports good effect with lorazepam and reports sleeping well last night. Objective - General Observations Appearance: Neat Stature: WNL Posture: WNL Eye Contact: Average Behavior/Activity: WNL - Interaction Observations Attitude Towards Examiner: Cooperative, Anxious Stated Mood: Anxious Affect: Restricted Speech Pattern/Tone: Clear, Appropriate, Normal Volume Thought Process: Coherent, Goal Directed Perception: WNL Thought Content: Preoccupation/Ruminations, Self-Deprecatory Thought Process: Lethality: Passive Wish Hallucination Type: Denies Delusion Type: Denies - Cognitive Function Orientation: A&O x 4 Level of Consciousness: Alert Cognition: WNL Estimated Intelligence: Normal Insight: Mostly Blames Others for Problems Judgment Within Normal Limits: No Ability to Make Reasonable Decisions: Moderately Impaired - Medication Compliance Cooperative with Inpatient Medication Regimen: Yes - Group Participation Participates in Group Activities: Partial Assessment - Assessment Merits Inpatient Hospitalization: For Immediate Safety, For Stabilization Inpatient DSM-V Dx: F43.12 Clinical Impression: 53-year-old white female, domiciled, , disabled, who has been hospitalized 4 times in the past since 2011. She returned to us this week due to suicidal ideation and worsening insomnia after voluntarily discharging last week. She has an extensive trauma history and has been having a particularly difficult year due to medical complications (intubated d/t DRESS) and attending a facility that her insurance company touted as a BSU but was primarily a substance use facility. Patient merits hospitalization for immediate safety and stabilization. Plan - Plan Treatment Plan: Name: CINTHIA CHAVEZ Birthdate: 1965 [id number] continue acute intensive psychiatric treatment. may decrease to q30min and allow staff pass. continue current medications. obtain EKG. discharge planning to include family and outpatient providers. Continued Medication Management: Start Medication Medications: Current Medications Acetaminophen (Tylenol Tab*) 650 mg PO Q4H PRN PRN Reason: PAIN; OR TEMP >101 Al Hydrox/Mg Hydrox/Simethicone (Maalox Plus*) 30 ml PO Q4H PRN PRN Reason: INDIGESTION Ascorbic Acid (Vitamin C Tab*) 1,000 mg PO DAILY [facility] Last Admin: 02/15/19 09:30 Dose: 1,000 mg Bupropion HCl (Wellbutrin Tab*) 75 mg PO DAILY [facility] Last Admin: 02/15/19 09:29 Dose: 75 mg Cholecalciferol (Vitamin D Tab*) 2,000 units PO DAILY [facility] Last Admin: 02/15/19 09:30 Dose: 2,000 units Diltiazem HCl (Cardizem Cd Cap*) 240 mg PO QPM [facility] Last Admin: 02/14/19 21:31 Dose: 240 mg Docusate Sodium (Colace Cap*) 200 mg PO BID [facility] Last Admin: 02/15/19 09:29 Dose: 200 mg Fluticasone Propionate (Flonase Nasal Boyd 50mcg*) 2 spray BOTH NARES QAM [facility] Last Admin: 02/15/19 09:26 Dose: 2 spray Hydroxyzine HCl (Atarax Tab*) 50 mg PO Q6H PRN PRN Reason: ANXIETY Last Admin: 02/13/19 22:19 Dose: 50 mg Ibuprofen (Motrin Tab*) 600 mg PO Q6H PRN PRN Reason: PAIN Levothyroxine Sodium (Synthroid Tab*) 50 mcg PO QAM@0600 [facility] Last Admin: 02/15/19 06:11 Dose: 50 mcg Loratadine (Claritin Tab(Nf)) 10 mg PO BEDTIME [facility] Last Admin: 02/14/19 21:32 Dose: 10 mg Lorazepam (Ativan Tab(*)) 1 mg PO Q6H PRN PRN Reason: ANXIETY Last Admin: 02/15/19 00:11 Dose: 1 mg Multivitamins/Minerals (Theragran/Minerals Tab*) 1 tab PO DAILY [facility] Last Admin: 02/15/19 09:30 Dose: Not Given Multivitamins/Minerals (Preservision Areds 2) 1 cap PO DAILY [facility] Last Admin: 02/15/19 09:27 Dose: 1 cap Pto: (Lactobac 41/B. Bifid,Lactis/Fos [ Ultimate Probiotic- 10 25 Billn] 1 Cap) 1 cap PO DAILY [facility] Last Admin: 02/15/19 09:28 Dose: 1 cap Propantheline [place] (Probanthine Tab*) 15 mg PO QID PRN PRN Reason: hot flashes Last Admin: 02/15/19 09:27 Dose: 15 mg Vilazodone HCl (Viibryd (Nf)) 40 mg PO DAILY [facility] Last Admin: 02/15/19 09:25 Dose: 40 mg Ziprasidone (Geodon (Generic) *) 40 mg PO BEDTIME [facility] Last Admin: 02/14/19 21:34 Dose: 40 mg Zolpidem Tartrate (Ambien Tab*) 10 mg PO BEDTIME [facility] Last Admin: 02/14/19 21:29 Dose: 10 mg - Discharge Plan Discharge Plan: Inpatient Hospitalization
--- NOTE | 2019-02-15 13:17 | PN ---
BSU: Group Therapy Note - Service Type Service Type: [id number] Group Psychotherapy - Cognitive Behavioral Group Note: Akiko described difficulties with family dynamics, describing her childrent as "spoiled" and generally uncaring of her. She is dissappointed that none of her family has visited or called, recalling how her oldest daughter, who is 25 years of age appears to be unconcerned with her health and well being. After venting for a substantial period of time, she was able to attend to group discussion in an appropriate fashion.
[2019-02-15] MEDS: DILTIAZEM CD 240 MG PO SCH (18:08)
[2019-02-15] MEDS: Zolpidem TAB* 10 MG PO SCH (21:33)
[2019-02-15] MEDS: Ziprasidone * 20 MG CAP (generic Geodon) PO SCH (21:33)
[2019-02-15] MEDS: LORATADINE 10 MG PO SCH (21:35)
[2019-02-16] MEDS: Levothyroxine TAB* 50 MCG TAB PO SCH (07:28)
[2019-02-16] MEDS: PTO:Multivitamins/Mins (NF) AREDS2 1 CAP CAP PO SCH (08:29)
[2019-02-16] MEDS: buPROPion TAB* 75 MG PO SCH (08:29)
[2019-02-16] MEDS: Fluticasone NASAL SPRAY 50MCG* 16 gm SPRAY BTL BOTH NARES SCH (08:29)
[2019-02-16] MEDS: Ascorbic Acid TAB* 500 MG PO SCH (08:31)
[2019-02-16] MEDS: Docusate CAP* 100 MG PO SCH ×2 (08:31→21:18)
[2019-02-16] MEDS: Cholecalciferol TAB* 1000 UNITS PO SCH (08:31)
[2019-02-16] MEDS: CMCS:Vilazodone (NF) 40 MG TAB PO SCH (08:32)
[2019-02-16] MEDS: Multivitamins/Minerals TAB PO SCH (08:32)
[2019-02-16] MEDS: [UNRECOGNIZED DRUG - OTHER] PO SCH (08:33)
[2019-02-16] MEDS: LACTOBAC PO SCH (08:33)
[2019-02-16] MEDS: [UNRECOGNIZED DRUG - OTHER] PO PRN ×2 (08:35→18:09)
[2019-02-16] MEDS: LORazepam TAB(*) 1 MG PO PRN ×2 (09:26→21:25)
[2019-02-16] MEDS: Acetaminophen TAB* 325 MG PO PRN (09:27)
[2019-02-16] MEDS: DILTIAZEM CD 240 MG PO SCH (18:00)
[2019-02-16] MEDS: Ziprasidone * 20 MG CAP (generic Geodon) PO SCH (21:17)
[2019-02-16] MEDS: Zolpidem TAB* 10 MG PO SCH (21:17)
[2019-02-16] MEDS: LORATADINE 10 MG PO SCH (21:20)
[2019-02-17] MEDS: Levothyroxine TAB* 50 MCG TAB PO SCH (06:57)
[2019-02-17] MEDS: Fluticasone NASAL SPRAY 50MCG* 16 gm SPRAY BTL BOTH NARES SCH (08:42)
[2019-02-17] MEDS: LORazepam TAB(*) 1 MG PO PRN ×3 (08:43→21:39)
[2019-02-17] MEDS: buPROPion TAB* 75 MG PO SCH (08:44)
[2019-02-17] MEDS: Ascorbic Acid TAB* 500 MG PO SCH (08:44)
[2019-02-17] MEDS: Cholecalciferol TAB* 1000 UNITS PO SCH (08:45)
[2019-02-17] MEDS: Acetaminophen TAB* 325 MG PO PRN ×2 (08:45→21:43)
[2019-02-17] MEDS: [UNRECOGNIZED DRUG - OTHER] PO SCH (08:46)
[2019-02-17] MEDS: CMCS:Vilazodone (NF) 40 MG TAB PO SCH (08:46)
[2019-02-17] MEDS: Docusate CAP* 100 MG PO SCH ×2 (08:46→21:40)
[2019-02-17] MEDS: LACTOBAC PO SCH (08:46)
[2019-02-17] MEDS: Multivitamins/Minerals TAB PO SCH (08:47)
[2019-02-17] MEDS: PTO:Multivitamins/Mins (NF) AREDS2 1 CAP CAP PO SCH (08:47)
[2019-02-17] MEDS: hydrOXYzine HCL TAB* 50 MG PO PRN (14:17)
[2019-02-17] MEDS: DILTIAZEM CD 240 MG PO SCH (19:17)
[2019-02-17] MEDS: Ziprasidone * 20 MG CAP (generic Geodon) PO SCH (21:40)
[2019-02-17] MEDS: Zolpidem TAB* 10 MG PO SCH (21:40)
[2019-02-17] MEDS: [UNRECOGNIZED DRUG - OTHER] PO PRN (21:40)
[2019-02-17] MEDS: LORATADINE 10 MG PO SCH (21:40)
[2019-02-18] MEDS: Levothyroxine TAB* 50 MCG TAB PO SCH (06:20)
[2019-02-18] MEDS: [UNRECOGNIZED DRUG - OTHER] PO PRN (07:17)
[2019-02-18 08:26] VITALS: BP 111/78
[2019-02-18] MEDS: Ascorbic Acid TAB* 500 MG PO SCH (08:33)
[2019-02-18] MEDS: CMCS:Vilazodone (NF) 40 MG TAB PO SCH (08:33)
[2019-02-18] MEDS: Cholecalciferol TAB* 1000 UNITS PO SCH (08:33)
[2019-02-18] MEDS: [UNRECOGNIZED DRUG - OTHER] PO SCH (08:34)
[2019-02-18] MEDS: LACTOBAC PO SCH (08:34)
[2019-02-18] MEDS: Fluticasone NASAL SPRAY 50MCG* 16 gm SPRAY BTL BOTH NARES SCH (08:34)
[2019-02-18] MEDS: Docusate CAP* 100 MG PO SCH (08:34)
[2019-02-18] MEDS: buPROPion TAB* 75 MG PO SCH (08:34)
[2019-02-18] MEDS: Multivitamins/Minerals TAB PO SCH (08:34)
[2019-02-18] MEDS: PTO:Multivitamins/Mins (NF) AREDS2 1 CAP CAP PO SCH (08:35)
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
== END 2019-02-18 11:00 | disposition home or self-care (01) | DRG 755 ==
LOC: ED 11:49 → BSU 15:16
PROVIDERS: ADMIT Psychiatry & Neurology Psychiatry; ATTEND Psychiatry & Neurology Psychiatry
PROC: GZHZZZZ Group Psychotherapy (ICD-10-PCS; principal; 2019-02-15)
DX: F43.12 Post-traumatic stress disorder, chronic (principal); F33.2 Major depressive disorder, recurrent severe without psychotic features; R45.851 Suicidal ideations; E78.00 Pure hypercholesterolemia, unspecified; Z62.810 Personal history of physical and sexual abuse in childhood; J30.2 Other seasonal allergic rhinitis; E03.9 Hypothyroidism, unspecified; F41.9 Anxiety disorder, unspecified; G47.00 Insomnia, unspecified; Z88.2 Allergy status to sulfonamides; Z88.8 Allergy status to other drugs, medicaments and biological substances; Z91.5 Personal history of self-harm; Z91.410 Personal history of adult physical and sexual abuse; Z81.1 Family history of alcohol abuse and dependence; Z80.3 Family history of malignant neoplasm of breast; Z78.0 Asymptomatic menopausal state; Z81.8 Family history of other mental and behavioral disorders
CPT/HCPCS: 36415; 80053; 80061; 80307; 80320; 80329; 81003; 83036; 84443; 85025; 90853; 93005; 99222; 99232; 99238; 99284; A9270-GY; G0480

== ENCOUNTER 2022-09-07 10:18 | Inpatient (IN) ==
[2022-09-07 11:46] LABS: ABS Basophils 0.1 10^3/ul (0-0.2); ABS Eosinophils 0.1 10^3/ul (0-0.6); ABS Lymphocytes 1.9 10^3/ul (1.0-4.8); ABS Monocytes 0.7 10^3/ul (0-0.8); ABS Neutrophils 4.6 10^3/ul (1.5-7.7); Eosinophil % 1.4 %; Hematocrit 39 % (35-47); Hemoglobin 12.8 g/dL (12.0-16.0); Lymphocyte % 25.9 %; Mean Corpuscular HGB Conc 33 g/dL (31-36); Mean Corpuscular Hemoglobin 28 pg (27-31); Mean Corpuscular Volume 86 fL (80-97); Mean Platelet Volume 7.4 fL (7.4-10.4); Platelet Count 305 10^3/uL (150-450); Red Blood Count 4.57 10^6 /uL (3.70-4.87); Red Cell Distribution Width 13 % (10-15); White Blood Count 7.4 10^3/uL (3.5-10.8)
[2022-09-07 12:43] LABS: ALT 32 U/L (7-52); AST 23 U/L (13-39); Acetaminophen < 15 mcg/mL; Albumin 4.7 g/dL (3.2-5.2); Alcohol, S < 13 mg/dL (<13); Alkaline Phosphatase 106 U/L (35-149); Anion Gap 2 mmol/L (2-11); Blood Urea Nitrogen 11 mg/dL (6-24); CO2 Carbon Dioxide 30 mmol/L (22-32); Calcium 9.6 mg/dL (8.6-10.3); Chloride 105 mmol/L (101-111); Creatinine, Serum 0.97 mg/dL (0.51-0.95); Globulin 2.3 g/dL (2-4); Glucose 84 mg/dL (70-100); Potassium 4.4 mmol/L (3.5-5.0); Salicylate < 2.50 mg/dL (<30); Sodium 137 mmol/L (135-145)
[2022-09-07 12:57] LABS: TSH Ultra Thyroid Stim Horm 0.88 mcIU/mL (0.34-5.60)
[2022-09-07 15:06] LABS: Urine Appearance Clear; Urine Bilirubin Negative (Negative); Urine Blood Negative (Negative); Urine Color Colorless; Urine Glucose Negative (Negative); Urine Ketones Negative (Negative); Urine Nitrite Negative (Negative); Urine Protein Negative (Negative); Urine Specific Gravity 1.002 (1.002-1.030); Urine Urobilinogen Negative (Negative)
[2022-09-07 15:48] LABS: Urine Benzodiazepine Screen Presumptive Positive (None Detect); Urine Cannabinoids Screen Presumptive Positive (None Detect); Urine Opiates Screen None Detected (None Detect)
[2022-09-08] MEDS ORDERED: Al Hydrox/Mg Hydrox/Simet LIQ 30 ML UDC PO PRN (00:14)
[2022-09-08] MEDS: LINACLOTIDE 72 MCG CAP (NF) PO SCH (10:21)
[2022-09-08] MEDS: Fluticasone NASAL SPRAY 50MCG 16 gm SPRAY BTL BOTH NARES SCH (10:22)
[2022-09-08] MEDS: Polyethylene Glycol 3350 17 GM PACKET PO SCH ×2 (10:25→20:54)
[2022-09-08] MEDS: Vitamin THERAPEUTIC TAB PO SCH (10:26)
[2022-09-08] MEDS ORDERED: CMC:Vilazodone 40 mg TAB (NF) PO SCH (12:00)
[2022-09-08] MEDS: CMCS: LoraTADine 10 mg TAB (NF) PO SCH (17:39)
[2022-09-09 08:21] LABS: HDL Cholesterol 49.6 mg/dL
[2022-09-09] MEDS: Polyethylene Glycol 3350 17 GM PACKET PO SCH ×2 (08:24→22:11)
[2022-09-09] MEDS: Fluticasone NASAL SPRAY 50MCG 16 gm SPRAY BTL BOTH NARES SCH (08:24)
[2022-09-09] MEDS: Vitamin THERAPEUTIC TAB PO SCH (08:25)
[2022-09-09] MEDS: CMCS: LoraTADine 10 mg TAB (NF) PO SCH (08:26)
[2022-09-09] MEDS: LINACLOTIDE 72 MCG CAP (NF) PO SCH (08:26)
[2022-09-09] MEDS: PTO: Fexofenadine 180 mg TAB (NF) PO PRN (22:23)
[2022-09-10] MEDS: CMCS:LINACLOTIDE 72 MCG CAP (NF) PO SCH (06:03)
[2022-09-10] MEDS: Polyethylene Glycol 3350 17 GM PACKET PO SCH ×2 (08:40→21:04)
[2022-09-10] MEDS: Vitamin THERAPEUTIC TAB PO SCH (08:41)
[2022-09-10] MEDS: Fluticasone NASAL SPRAY 50MCG 16 gm SPRAY BTL BOTH NARES SCH (08:42)
[2022-09-10] MEDS: CMCS: LoraTADine 10 mg TAB (NF) PO SCH (08:42)
[2022-09-11] MEDS: CMCS:LINACLOTIDE 72 MCG CAP (NF) PO SCH (06:06)
[2022-09-11] MEDS: Polyethylene Glycol 3350 17 GM PACKET PO SCH ×2 (09:03→20:55)
[2022-09-11] MEDS: Fluticasone NASAL SPRAY 50MCG 16 gm SPRAY BTL BOTH NARES SCH (09:03)
[2022-09-11] MEDS: Vitamin THERAPEUTIC TAB PO SCH (09:06)
[2022-09-11] MEDS: CMCS: LoraTADine 10 mg TAB (NF) PO SCH (09:07)
[2022-09-11 21:27] VITALS: BP 124/72
[2022-09-11] MEDS: PTO: Fexofenadine 180 mg TAB (NF) PO PRN (21:34)
[2022-09-12] MEDS: CMCS:LINACLOTIDE 72 MCG CAP (NF) PO SCH (06:08)
[2022-09-12] MEDS: Vitamin THERAPEUTIC TAB PO SCH (08:58)
[2022-09-12] MEDS: CMCS: LoraTADine 10 mg TAB (NF) PO SCH (08:59)
[2022-09-12] MEDS: Polyethylene Glycol 3350 17 GM PACKET PO SCH ×2 (09:00→22:17)
[2022-09-12] MEDS: Fluticasone NASAL SPRAY 50MCG 16 gm SPRAY BTL BOTH NARES SCH (09:19)
[2022-09-12] MEDS ORDERED: Benzocaine (plain) Lozenge 15 MG MT PRN (15:14)
[2022-09-12] MEDS: PTO: Fexofenadine 180 mg TAB (NF) PO PRN (22:18)
[2022-09-13] MEDS: CMCS:LINACLOTIDE 72 MCG CAP (NF) PO SCH (08:04)
[2022-09-13] MEDS: Fluticasone NASAL SPRAY 50MCG 16 gm SPRAY BTL BOTH NARES SCH (08:54)
[2022-09-13] MEDS: Polyethylene Glycol 3350 17 GM PACKET PO SCH (08:55)
[2022-09-13] MEDS: Vitamin THERAPEUTIC TAB PO SCH (08:55)
[2022-09-13] MEDS ORDERED: CMC:Doxepin 10 mg CAP (NF) PO SCH (21:00)
== END 2022-09-13 15:36 | disposition home or self-care (01) | DRG 751 ==
LOC: ED 10:18 → EDHOLD 09-08 00:21 → BSU 09-08 01:20
PROVIDERS: ADMIT Psychiatry & Neurology Psychiatry; ATTEND Psychiatry & Neurology Psychiatry